=== PATIENT | female | born 1945 | race Caucasian/White ===

== ENCOUNTER 2016-07-04 04:12 | Day surgery (SDC) | payer OTHER ==
[2016-06-27 17:42] LABS: HEMATOCRIT 38.8 % (36.0-48.0); HEMOGLOBIN 13.4 g/dL (12.0-16.0)
[2016-06-27 17:53] LABS: BUN (BLOOD UREA NITROGEN) 16 MG/DL (6-23); CALCIUM, SERUM 9.9 MG/DL (8.5-10.4); CHLORIDE, SERUM 103 MMOL/L (96-112); CREATININE 1.11 MG/DL (0.55-1.02); GFR AFRICAN AMERICAN 59 ML/MIN (>=60); GFR NON AFRICAN AMERICAN 51 ML/MIN (>=60); POTASSIUM, SERUM 4.1 MMOL/L (3.5-5.3)
[2016-06-27 17:55] LABS: CO2 (CARBON DIOXIDE) 31 MMOL/L (24-34); GLUCOSE, SERUM 59 MG/DL (60-99); SODIUM, SERUM 142 MMOL/L (135-148)
--- NOTE | ~2016-07-04 | OP ---
Record Of Operation [facility] [address] [place]. [address] NAME: FRANNY OLIVAREZ : 49 STATUS : [facility]#: [id number] AGE: 71 ADM/REG DATE : 07/04/16 MR#: [id number] REPORT SERV DATE: 07/07/16 DICTATED BY: PAULINA WESTFALL II DATE: 07/07/16 REPORT STATUS : Draft TRANSCRIBED BY: MODLesvia DATE: 07/07/16 DATE OF PROCEDURE: 07/04/2016 PREOPERATIVE DIAGNOSES: 1. Right lower extremity radiculopathy. 2. L4-5 stenosis. 3. 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 POSTOPERATIVE DIAGNOSES: 1. Right lower extremity radiculopathy. 2. L4-5 stenosis. 3. 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 PROCEDURES: 1. Laminectomy, L4-L5. 2. Revision L5-S1 facetectomy. 3. Use of the microscope and stereotactic spinal imaging. SURGEON: Paulina Westfall M.D. FLUIDS: 1600 mL LR. ESTIMATED BLOOD LOSS: 40 mL. DRAINS: None. COMPLICATIONS: None. ANTIBIOTIC: Preoperatively. PREOPERATIVE HISTORY: This is a very friendly 71-year-old female, who reports a history of surgery at L5-S1 many years ago. She reports having done relatively well from this. She has some back pain, but primarily now is complaining of pain consistent with right lower extremity radiculopathy. We discussed the pros and cons of surgical intervention versus continuing nonoperative care. She was very limited by the leg pain. We felt that surgery was a relatively good option. She is significantly overweight; however, I did not feel that a fusion was necessary at this point. I felt that the laminectomy should give her a reasonable chance of decreasing leg pain. However, I discussed with her and her daughter the fact that if this approach failed short or alf, then she would need to consider a complete facetectomy and fusion at L4-5 and possibly L5-S1. At L5-S1, I felt that I could be more aggressive with the decompression as this level appeared to be significantly degenerative with significant disk space collapse. DESCRIPTION OF PROCEDURE: After informed consent was obtained, the patient was brought to the operating room at her request, and general anesthesia was achieved. She was placed in the prone position and the back was prepped and draped in a sterile fashion. The Record Of Operation [facility] [address] [place]. [address] NAME: FRANNY OLIVAREZ : 49 STATUS : [facility] PAT#: [id number] AGE: 71 ADM/REG DATE : 07/04/16 MR#: [id number] REPORT SERV DATE: 07/07/16 DICTATED BY: PAULINA WESTFALL II DATE: 07/07/16 REPORT STATUS : Draft TRANSCRIBED BY: JOB DATE: 07/07/16 stereotactic spinal pin was placed into the left iliac crest and the intraoperative CT scan was completed. Next, the minimally invasive incision was now performed at L4-5 and L5-S1, and the quadrant retractor was placed. The microscope was now brought into place, and under microscopic visualization with the assistance of stereotactic guidance, the quadrant retractor was placed and the soft tissue was removed from the interlaminar space at L4-5. At this point, the laminectomy was initiated with the high-speed agata and the Kerrison rongeurs and the curettes. The spinolaminar junction was now taken down with the high-speed agata and the Kerrison rongeurs and the curettes. The significantly hypertrophic ligamentum flavum was now removed and the dura was then well-visualized. The portions of the facets were now removed bilaterally with particular attention paid on the right. The L5 nerve root was then well-decompressed bilaterally. The L4 nerve root did not appear to be compromised in the foraminal zone. At this point, the irrigation was performed and hemostasis was confirmed. Next, the attention was turned to L5-S1 on the right. Portions of the facet were now removed. This was a revision surgery. The curved curettes were used to detach the scar from the facet. At this point, portions of the facet again were removed and the S1 nerve root was well-decompressed. The L5 nerve root also did exhibit some compression in the foraminal zone, and additional portions of the superior facet were removed. At this point, irrigation was performed and hemostasis was achieved. Standard closure was now performed. The patient was then extubated and transferred to the PACU in stable condition. BETH/JOB Paulina Westfall II, M.D. / [id number] CC: Ryder Arias II
[~2016-07-04 04:12] MED LIST: ACTOS15 PO; ANTIDEPRESSANT PO; BIOTIN PO; BIOTIN5 MG PO; BYDUREON2 MG SQ; CALCIUM PO; CALTRA600D PO; CARD60 PO; CELEBREX2 PO; COREG3 PO; COREG6 PO; CYMBALTA60 PO; ENDOCET1 TAB PO; GLUCPH PO; HYZAAR 100/25 T1 TAB PO; Hard Nails PO; JANUVIA100 MG PO; KDUR10 PO; KLOR-CON 1010 MEQ PO; LANTANOPROST OPH; LANTUS SC; LEVOTHYROXIN25 MCG PO; LEVSINTAB PO; LEXAPRO20 PO; LOFIBRA134 MG PO; MAGOX4 PO; METHOC750B PO; MICRONASE2.5 MG PO; MIRAPEX PO; MIRAPEX0.75 MG PO; MIRAPEX1 MG PO; MIRAPEX250 PO; MIRAPEX5 PO; MSCONT15 PO; NAP500 PO; NEUR300 PO; NORCO1 TA2 PO; NORV10 PO; NORV5 PO; NOVOLOG SC; OS500+D PO; OSTEO BI-FLEX1 EACH PO; PCET PO; PERCOCET1 TA2 PO; ROBAXIN PO; SERTRALINE PO; SPIRO25 PO; TAZTIA X3 PO; TRAMADOL PO; TRAZ100 PO; TRAZ50 PO; ULTRAM50 PO; V2 PO; VIB100 PO; VICTOZA SC; WELLXL300 PO; XALAT OPH; ZOL100 PO; [UNRECOGNIZED DRUG - REMARK] PO
== END 2016-07-04 11:36 | disposition home or self-care (01) ==
LOC: SDC 04:12
PROVIDERS: Orthopaedic Surgery
PROC: 01NB0ZZ Release Lumbar Nerve, Open Approach (ICD-10-PCS; principal; 2016-07-04 05:45)
DX: M48.06 Spinal stenosis, lumbar region (principal); M51.17 Intervertebral disc disorders with radiculopathy, lumbosacral region; F41.9 Anxiety disorder, unspecified; F32.9 Major depressive disorder, single episode, unspecified; E11.9 Type 2 diabetes mellitus without complications; K21.9 Gastro-esophageal reflux disease without esophagitis; I10 Essential (primary) hypertension; G47.33 Obstructive sleep apnea (adult) (pediatric); E66.9 Obesity, unspecified; M81.0 Age-related osteoporosis without current pathological fracture; Z79.899 Other long term (current) drug therapy; Z79.891 Long term (current) use of opiate analgesic; Z96.653 Presence of artificial knee joint, bilateral; Z90.710 Acquired absence of both cervix and uterus; Z98.890 Other specified postprocedural states; Z83.3 Family history of diabetes mellitus; Z87.891 Personal history of nicotine dependence; Z68.42 Body mass index [BMI] 45.0-49.9, adult; Z79.52 Long term (current) use of systemic steroids; Z88.8 Allergy status to other drugs, medicaments and biological substances; Z79.4 Long term (current) use of insulin; Z98.1 Arthrodesis status; Z90.49 Acquired absence of other specified parts of digestive tract; Z98.42 Cataract extraction status, left eye; Z98.41 Cataract extraction status, right eye
CPT/HCPCS: 80048; 82962; 85014; 85018; 88304; 88311; 93005; A9270-GY; J0690; J1030; J2250; J2405; J2710; J3010